=== PATIENT | male | born 2000 | race Caucasian/White ===

== ENCOUNTER 2020-07-27 13:43 | Emergency (ER) | payer OTHER, SELFPAY ==
[~2020-07-27] VITALS: Ht 180.3 cm; Wt 62.6 kg
[2020-07-27 13:43] VITALS: BP_SYST 116
--- NOTE | 2020-07-27 13:45 | NUR ---
Patient triaged and placed in TENT. VSS and patient appears in no acute distress at this time. Accompanied by MOTHER, awaiting available bed, and MD notified of need for MSE.
--- NOTE | 2020-07-27 14:00 | NUR ---
Pt in the tent, A&Ox4, pt presents to ER with cough congestion and bodyaches, pt states he was exposed to covid , skin pink and warm, cap refill <3.
--- NOTE | 2020-07-27 14:20 | NUR ---
DR BOURGEOIS OUT TO EVALUATE PT IN TENT
[2020-07-27 14:45] VITALS: BP_SYST 116
--- NOTE | 2020-07-27 19:36 | NUR ---
Patient given written and verbal discharge instructions and verbalizes understanding. ER MD discussed with patient the results and treatment provided. Patient in stable condition. ID arm band removed. Patient educated on pain management and to follow up with PMD. Pain Scale 2/10. Opportunity for questions provided and answered. Medication side effect fact sheet provided.
== END 2020-07-27 14:45 | disposition home or self-care (01) ==
LOC: SED 13:43
DX: U07.1 COVID-19 (principal)
CPT/HCPCS: 36415; 71045; 99284

== ENCOUNTER 2021-03-16 07:10 | Outpatient (CLI) | payer OTHER ==
[2021-03-16 09:11] LABS: BASOPHILS # (AUTO) 0.1 K/uL (0.0-0.2); EOSINOPHILS # (AUTO) 0.6 K/uL (0.0-0.4); EOSINOPHILS % (AUTO) 8.5 % (0.0-4.0); HEMATOCRIT 43.4 % (36-54); LYMPHOCYTES # (AUTO) 2.4 K/uL (1.0-5.5); LYMPHOCYTES % (AUTO) 34.2 % (20.5-51.5); MEAN CORPUSCULAR HEMOGLOBIN 31 pg (27-31); MEAN CORPUSCULAR HGB CONC 35 % (32-36); MEAN CORPUSCULAR VOLUME 90 fL (79.0-98.0); MONOCYTES # (AUTO) 0.7 K/uL (0.0-1.0); MONOCYTES % (AUTO) 9.3 % (1.7-9.3); NEUTROPHILS # (AUTO) 3.4 K/uL (1.8-7.7); PLATELET COUNT (AUTO) 161 K/uL (130-430); RED BLOOD CELL COUNT(AUTO) 4.82 MIL/uL (4.2-6.2); RED CELL DISTRIBUTION WIDTH 12.6 % (9.0-15.0); WHITE BLOOD COUNT (AUTO) 7.2 K/uL (4.8-10.8)
[2021-03-16 09:25] LABS: ALBUMIN 3.9 g/dL (3.4-4.8); CALCIUM 8.6 mg/dL (8.4-11.0); CREATININE 0.91 mg/dL (0.55-1.30); POTASSIUM 3.9 mmol/L (3.5-5.1); TOTAL BILIRUBIN 0.4 mg/dL (0.0-1.0)
== END 2021-03-16 20:29 | disposition home or self-care (01) ==
LOC: SLB 07:10
PROVIDERS: ATTEND Family Medicine
DX: Z00.00 Encounter for general adult medical examination without abnormal findings (principal)
CPT/HCPCS: 36415; 80053; 80061; 85025